=== PATIENT | male | born 1960 | race Caucasian/White ===

== ENCOUNTER 2017-10-25 10:14 | Observation (INO) | payer OTHER ==
[2017-10-25] MEDS ORDERED: NS 1,000 ML IV ONE ×2 (10:19→11:30)
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
[2017-10-25 11:06] LABS: PLATELET COUNT 266 10^3/uL (150-400)
--- NOTE | 2017-10-25 11:08 | CPEKG ---
Heart Rate: 91 RR Interval: 659 P-R Interval: 204 QRSD Interval: 86 QT Interval: 380 QTC Interval: 468 P [place]: 76 QRS [place]: 61 T Wave [place]: 64 EKG Severity - NORMAL ECG - EKG Impression: SINUS RHYTHM Electronically Signed By: Didier Louie 26-Oct-2017 23:00:54
[2017-10-25 11:22] LABS: CREATINE KINASE 103 IU/L (0-224)
[2017-10-25] MEDS ORDERED: OXYCODONE/APAP 5/325 TAB PO ONE (11:23)
[2017-10-25 12:04] LABS: INR 1.12 (0.83-1.16); PROTIME(PATIENT) 14.6 SEC (12.0-15.0)
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
[2017-10-25] MEDS ORDERED: SUMAtriptan 50 MG TAB PO PRN (13:48)
[2017-10-25] MEDS ORDERED: ONDANSETRON 4 MG/2 ML VIAL IVP PRN (13:49)
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
[2017-10-25] MEDS: ACETAMINOPHEN 500 MG TAB PO SCH ×2 (15:42→22:11)
[2017-10-25] MEDS: BACITRACIN/POLYMYXIN B SULFATE 28.3 GM TUBE TP SCH ×2 (15:42→22:12)
[2017-10-25] MEDS: NS 1,000 ML IV SCH (15:42)
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
[2017-10-25] MEDS ORDERED: traZODone 100 MG TAB PO SCH (21:00)
[2017-10-26] MEDS: NS 1,000 ML IV SCH (02:20)
[2017-10-26 06:05] LABS: PLATELET COUNT 210 10^3/uL (150-400)
[2017-10-26] MEDS: ACETAMINOPHEN 500 MG TAB PO SCH (06:23)
[2017-10-26 08:00] VITALS: BP 106/59
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
[2017-10-26] MEDS: BACITRACIN/POLYMYXIN B SULFATE 28.3 GM TUBE TP SCH (11:23)
--- NOTE | 2017-10-26 12:13 | GDS ---
[f rep st] DISCHARGE SUMMARY DISCHARGE DIAGNOSES: 1. Left frontal intraparenchymal bleed (white matter) with distal left clavicle fracture. 2. Anemia. 3. Weight loss. CONDITION AT DISCHARGE: Improved. DISPOSITION: Home to [place] after a local stay of 1 week. Condition is good. There are no diet restrictions. There is no dietary texture. HOME MEDICATIONS: Include Tylenol 1000 mg every 8 hours for 15 days. He will use bacitracin (Polysporin ointment) to his abrasions. He will continue his trazodone 100 mg at bedtime, his Imitrex 100 mg daily p.r.n. migraine and his topiramate 100 mg p.o. h.s. Activities: he is to avoid highly stimulating environments x 1 month. I suggest he avoid bright lights TV, cell phone use and limit his computer use. He is aware what he is to avoid. He to avoid activities that could result in additional head injury. I have suggested limiting it to activity to gentle walking. He is to follow up with his primary care doctor regarding. 1. 25 pounds weight loss last 18 months. 2. Anemia While numbers 1 and 2 could be due to change due to beginning a vegan diet. We need to make sure the other causes are eliminated and he will follow up with primary care for his neurologic status and weight issue. He will follow up with Orthopedics regarding the progress of the distal left clavicle fracture. He is to wear his sling but to allow his shoulder drift down posteriorly. Hospital, course was uneventful. He was admitted and watched overnight. He remained neurologically intact. Followup scans were not obtained. He will be sent with a CD with all his x-rays and scans. /[id number]/MODL MTDD
[2017-10-26] MEDS ORDERED: TOPIRAMATE 100 MG PO SCH (21:00)
== END 2017-10-26 12:40 | disposition home or self-care (01) ==
LOC: INTOOBSV 11:31 → F2N 14:52
PROVIDERS: ADMIT Surgery; ATTEND Surgery
DX: S06.369A Traumatic hemorrhage of cerebrum, unspecified, with loss of consciousness of unspecified duration, initial encounter (principal); S42.002A Fracture of unspecified part of left clavicle, initial encounter for closed fracture; D64.9 Anemia, unspecified; R63.4 Abnormal weight loss; V18.0XXA Pedal cycle driver injured in noncollision transport accident in nontraffic accident, initial encounter; Y92.89 Other specified places as the place of occurrence of the external cause
CPT/HCPCS: 70450; 72125; 73030; 92523; 93005; 96360; 97116; 97161; 97165; 99285; G0378; 84484-PO; A4565